=== PATIENT | female | born 1970 | race Caucasian/White ===

== ENCOUNTER 2018-03-15 15:31 | Inpatient (IN) | payer OTHER ==
[~2018-03-15] VITALS: Ht 160 cm; Wt 49.9 kg
[2018-03-15 15:35] VITALS: Ht 160 cm; Wt 49.9 kg
[2018-03-15 16:44] LABS: BASOPHIL % 0.3 % (0-2); PLATELET COUNT 78 x10^3mcL (130-400)
[2018-03-15 17:29] LABS: CALCIUM 9.4 mg/dL (8.5-10.1); CARBON DIOXIDE 26.9 mmol/L (21-32); CHLORIDE SERUM 102 mmol/L (98-107); CREATININE SERUM 0.8 mg/dL (0.6-1.0); GFR1 > 60 mL/min; GLUCOSE SERUM 95 mg/dL (74-106); POTASSIUM SERUM 3.2 mmol/L (3.5-5.1); SODIUM SERUM 145 mmol/L (136-145)
[2018-03-15 17:55] LABS: ALKALINE PHOSPHATASE 193 U/L (46-116); ALT/SGPT 172 U/L (14-59); AST/SGOT 285 U/L (15-37); BILIRUBIN TOTAL 4.81 mg/dL (0.20-1.00); CHOLESTEROL 162 mg/dL (<200); HDL CHOLESTEROL 54 mg/dL (40-60); MAGNESIUM 1.3 mg/dL (1.8-2.4); PHOSPHOROUS 1.7 mg/dL (2.5-4.9); TOTAL PROTEIN, SERUM 6.5 g/dL (6.4-8.2)
[2018-03-15 17:56] LABS: ALBUMIN 3.2 g/dL (3.4-5.0)
[2018-03-15 20:35] LABS: CHOLESTEROL/HDL RATIO 3.2
[2018-03-15 20:44] LABS: T3 TOTAL 0.79 ng/mL
[2018-03-15 21:05] LABS: FREE T4 1.41 ng/dL (0.76-1.46); FREE THYROXINE INDEX 2.9 ug/dL (1.4-4.5); T4(THYROXINE) 8.1 ug/dL (4.7-13.3)
[2018-03-15 21:46] VITALS: BP 103/69
[2018-03-16 04:42] LABS: BASOPHIL % 0.3 % (0-2)
[2018-03-16 04:46] LABS: RED CELL DISTRIBUTION WIDTH 14.1 % (11.5-14.5)
[2018-03-16 04:47] LABS: PLATELET COUNT 70 x10^3mcL (130-400)
[2018-03-16 04:54] LABS: CALCIUM 7.5 mg/dL (8.5-10.1); CARBON DIOXIDE 27.1 mmol/L (21-32); CHLORIDE SERUM 107 mmol/L (98-107); CREATININE SERUM 0.6 mg/dL (0.6-1.0); GFR1 > 60 mL/min; GLUCOSE SERUM 64 mg/dL (74-106); MAGNESIUM 1.5 mg/dL (1.8-2.4); PHOSPHOROUS 2.8 mg/dL (2.5-4.9); SODIUM SERUM 142 mmol/L (136-145)
[2018-03-16 04:57] LABS: POTASSIUM SERUM 2.9 mmol/L (3.5-5.1)
[2018-03-16 05:23] VITALS: BP 102/65
[2018-03-16 07:16] LABS: UA SPECIFIC GRAVITY >=1.030 (1.005-1.035); microscopic required? YES; urine erythrocyte NEGATIVE (NEGATIVE)
[2018-03-16 07:54] LABS: AMPHETAMINE QUAL UR NONE DETECTED (See below)
[2018-03-16 12:37] VITALS: BP 94/66
[2018-03-16 16:45] VITALS: BP 96/65
[2018-03-16 21:07] VITALS: BP 95/62
[2018-03-17 05:27] VITALS: BP 106/72
[2018-03-17 08:15] LABS: BASOPHIL % 0.3 % (0-2); RED CELL DISTRIBUTION WIDTH 14.3 % (11.5-14.5)
[2018-03-17 08:19] LABS: PLATELET COUNT 50 x10^3mcL (130-400)
[2018-03-17 08:22] LABS: CARBON DIOXIDE 25.3 mmol/L (21-32); CHLORIDE SERUM 109 mmol/L (98-107); CREATININE SERUM 0.6 mg/dL (0.6-1.0); GFR1 > 60 mL/min; GLUCOSE SERUM 78 mg/dL (74-106); POTASSIUM SERUM 3.9 mmol/L (3.5-5.1); SODIUM SERUM 140 mmol/L (136-145)
[2018-03-17 08:32] LABS: ALBUMIN 2.1 g/dL (3.4-5.0); BILIRUBIN DIRECT 1.32 mg/dL (0.0-0.2); BILIRUBIN TOTAL 1.98 mg/dL (0.20-1.00); TOTAL PROTEIN, SERUM 4.4 g/dL (6.4-8.2)
[2018-03-17 08:33] VITALS: BP 133/86
[2018-03-17 12:00] VITALS: BP 102/70
[2018-03-17 12:02] VITALS: BP 102/70
[2018-03-17 16:27] VITALS: BP 94/62
[2018-03-17 21:47] VITALS: BP 96/63
[2018-03-18 04:58] VITALS: BP 111/75
[2018-03-18 07:49] LABS: ALKALINE PHOSPHATASE 142 U/L (46-116); ALT/SGPT 96 U/L (14-59); AST/SGOT 126 U/L (15-37); BILIRUBIN TOTAL 1.47 mg/dL (0.20-1.00); CALCIUM 7.8 mg/dL (8.5-10.1); CARBON DIOXIDE 25.8 mmol/L (21-32); CHLORIDE SERUM 108 mmol/L (98-107); CREATININE SERUM 0.5 mg/dL (0.6-1.0); GFR1 > 60 mL/min; GLUCOSE SERUM 84 mg/dL (74-106); MAGNESIUM 1.4 mg/dL (1.8-2.4); PHOSPHOROUS 2.5 mg/dL (2.5-4.9); POTASSIUM SERUM 4.1 mmol/L (3.5-5.1); SODIUM SERUM 141 mmol/L (136-145)
[2018-03-18 07:50] LABS: ALBUMIN 2.1 g/dL (3.4-5.0); TOTAL PROTEIN, SERUM 4.7 g/dL (6.4-8.2)
[2018-03-18 07:58] LABS: PLATELET COUNT 57 x10^3mcL (130-400); RED CELL DISTRIBUTION WIDTH 15.6 % (11.5-14.5)
[2018-03-18 08:04] VITALS: BP 116/81
[2018-03-18 09:41] LABS: ATYPICAL LYMPH 4 %; BAND NEUTROPHIL 0 % (0-10); BASOPHIL 0 % (0-2); MONOCYTE 14 % (0-7); SEGMENTED NEUTROPHILS 33 % (37-75)
[2018-03-18 09:42] LABS: PLATELET MORPHOLOGY PLATELETS DECREASED; rbc morphology (normal/abnorm) ABNORMAL (NORMAL)
[2018-03-18 12:02] VITALS: BP 123/64
[2018-03-18 16:37] VITALS: BP 99/67
[2018-03-18 21:20] VITALS: BP 105/72
[2018-03-19 05:07] VITALS: BP 120/71
[2018-03-19 07:17] LABS: ALKALINE PHOSPHATASE 149 U/L (46-116); ALT/SGPT 87 U/L (14-59); AST/SGOT 106 U/L (15-37); BILIRUBIN TOTAL 1.2 mg/dL (0.20-1.00); CALCIUM 7.9 mg/dL (8.5-10.1); CARBON DIOXIDE 24.6 mmol/L (21-32); CHLORIDE SERUM 109 mmol/L (98-107); CREATININE SERUM 0.5 mg/dL (0.6-1.0); GFR1 > 60 mL/min; GLUCOSE SERUM 77 mg/dL (74-106); PHOSPHOROUS 3.3 mg/dL (2.5-4.9); POTASSIUM SERUM 4.4 mmol/L (3.5-5.1); SODIUM SERUM 138 mmol/L (136-145)
[2018-03-19 07:18] LABS: ALBUMIN 2.2 g/dL (3.4-5.0)
[2018-03-19 08:42] LABS: BASOPHIL % 0.3 % (0-2)
[2018-03-19 08:48] LABS: PLATELET COUNT 103 x10^3mcL (130-400); RED CELL DISTRIBUTION WIDTH 15.6 % (11.5-14.5)
[2018-03-19 09:00] VITALS: BP 116/75
[2018-03-19 10:00] VITALS: BP 103/75
[2018-03-19 17:00] VITALS: BP 120/76
[2018-03-19 21:20] VITALS: BP 113/78
[2018-03-20 05:41] VITALS: BP 142/79
[2018-03-20 06:13] LABS: BASOPHIL % 0.3 % (0-2)
[2018-03-20 06:42] LABS: ALKALINE PHOSPHATASE 162 U/L (46-116); ALT/SGPT 71 U/L (14-59); AST/SGOT 71 U/L (15-37); BILIRUBIN TOTAL 0.9 mg/dL (0.20-1.00); CALCIUM 8.6 mg/dL (8.5-10.1); CARBON DIOXIDE 28.2 mmol/L (21-32); CHLORIDE SERUM 107 mmol/L (98-107); CREATININE SERUM 0.5 mg/dL (0.6-1.0); GFR1 > 60 mL/min; GLUCOSE SERUM 83 mg/dL (74-106); MAGNESIUM 1.6 mg/dL (1.8-2.4); PHOSPHOROUS 5.3 mg/dL (2.5-4.9); POTASSIUM SERUM 4.1 mmol/L (3.5-5.1); SODIUM SERUM 140 mmol/L (136-145)
[2018-03-20 06:46] LABS: PLATELET COUNT 102 x10^3mcL (130-400); RED CELL DISTRIBUTION WIDTH 16.6 % (11.5-14.5)
[2018-03-20 07:07] LABS: ALBUMIN 2.3 g/dL (3.4-5.0); TOTAL PROTEIN, SERUM 5.3 g/dL (6.4-8.2)
[2018-03-20 08:09] LABS: rbc morphology (normal/abnorm) ABNORMAL (NORMAL)
[2018-03-20 13:32] VITALS: BP 126/94
[2018-03-20 17:00] VITALS: BP 106/69
[2018-03-20 20:59] VITALS: BP 126/70
[2018-03-21 06:23] VITALS: BP 126/80
[2018-03-21 08:04] VITALS: BP 123/79
[2018-03-21 12:02] VITALS: BP 106/67
[2018-03-21] MEDS ORDERED: ECO81 PO (13:08)
[2018-03-21] MEDS ORDERED: AMLODIPINE BES2.5 M1 PO (13:09)
[2018-03-21] MEDS ORDERED: PRI20 PO (13:09)
== END 2018-03-21 14:40 | disposition home or self-care (01) | DRG 280 ==
LOC: ED 15:31 → DU 19:51
PROVIDERS: Emergency Medicine; Family Medicine; Internal Medicine; Internal Medicine Gastroenterology
PROC: 0DB68ZX Excision of Stomach, Via Natural or Artificial Opening Endoscopic, Diagnostic (ICD-10-PCS; principal; 2018-03-17 10:00)
DX: I21.A1 Myocardial infarction type 2 (principal); N17.0 Acute kidney failure with tubular necrosis; E43 Unspecified severe protein-calorie malnutrition; E51.2 Wernicke's encephalopathy; F10.239 Alcohol dependence with withdrawal, unspecified; N39.0 Urinary tract infection, site not specified; M62.82 Rhabdomyolysis; D61.818 Other pancytopenia; Z68.1 Body mass index [BMI] 19.9 or less, adult; K20.8 Other esophagitis; K29.70 Gastritis, unspecified, without bleeding; K29.80 Duodenitis without bleeding; E87.6 Hypokalemia; E83.42 Hypomagnesemia; D69.6 Thrombocytopenia, unspecified; F17.290 Nicotine dependence, other tobacco product, uncomplicated; Y90.0 Blood alcohol level of less than 20 mg/100 ml
CPT/HCPCS: 43235; 82962; 83880; 84425; 84439; 87046; 87046-59; 97110-GP; 97116-GP; A9500; G0480; J0696; J1200; J1610; J1650; J2250; J2270; J2310; J2405; J2785; J3010; J3411; J3475; J3480; J3490; J7030; J7040; J7042; J7050; Q0092

== ENCOUNTER 2018-03-27 13:23 | Inpatient (IN) | payer OTHER ==
[~2018-03-27] VITALS: Ht 160 cm; Wt 68.0 kg
[~2018-03-27 13:23] MED LIST: AMLODIPINE BES2.5 M1 PO; ECO81 PO; PRI20 PO
[2018-03-27 15:13] LABS: BASOPHIL % 0.6 % (0-2)
[2018-03-27 15:14] LABS: PLATELET COUNT 432 x10^3mcL (130-400); RED CELL DISTRIBUTION WIDTH 17.2 % (11.5-14.5)
[2018-03-27 15:24] LABS: CALCIUM 7.8 mg/dL (8.5-10.1); CARBON DIOXIDE 26.5 mmol/L (21-32); CHLORIDE SERUM 109 mmol/L (98-107); CREATININE SERUM 0.5 mg/dL (0.6-1.0); GFR1 > 60 mL/min; GLUCOSE SERUM 77 mg/dL (74-106); POTASSIUM SERUM 3.9 mmol/L (3.5-5.1); SODIUM SERUM 143 mmol/L (136-145)
[2018-03-27 15:29] LABS: ALKALINE PHOSPHATASE 121 U/L (46-116); ALT/SGPT 97 U/L (14-59); AST/SGOT 205 U/L (15-37); BILIRUBIN TOTAL 0.7 mg/dL (0.20-1.00); TOTAL PROTEIN, SERUM 6.5 g/dL (6.4-8.2)
[2018-03-27 15:36] LABS: ALBUMIN 2.9 g/dL (3.4-5.0)
[2018-03-27 17:13] LABS: T3 TOTAL 1.35 ng/mL
[2018-03-27 17:14] LABS: MAGNESIUM 1.7 mg/dL (1.8-2.4); PHOSPHOROUS 3.8 mg/dL (2.5-4.9)
[2018-03-27 17:15] LABS: CHOLESTEROL/HDL RATIO 3.7
[2018-03-27 17:50] LABS: FREE T4 0.65 ng/dL (0.76-1.46); FREE THYROXINE INDEX 1.5 ug/dL (1.4-4.5); T4(THYROXINE) 4.9 ug/dL (4.7-13.3)
[2018-03-27 17:56] LABS: microscopic required? NO
[2018-03-27 18:17] LABS: urine erythrocyte NEGATIVE (NEGATIVE)
[2018-03-27 18:31] LABS: AMPHETAMINE QUAL UR NONE DETECTED (See below)
[2018-03-27 18:51] VITALS: BP 100/67
[2018-03-27 18:56] VITALS: Ht 160 cm; Wt 68.0 kg
[2018-03-27 20:17] VITALS: BP 94/53
[2018-03-28 04:19] VITALS: BP 98/53
[2018-03-28 07:32] LABS: BASOPHIL % 0.5 % (0-2); PLATELET COUNT 371 x10^3mcL (130-400)
[2018-03-28 08:24] VITALS: BP 101/69
[2018-03-28 09:57] LABS: CALCIUM 7.8 mg/dL (8.5-10.1); CARBON DIOXIDE 21.2 mmol/L (21-32); CHLORIDE SERUM 108 mmol/L (98-107); CREATININE SERUM 0.5 mg/dL (0.6-1.0); GFR1 > 60 mL/min; GLUCOSE SERUM 91 mg/dL (74-106); MAGNESIUM 1.9 mg/dL (1.8-2.4); POTASSIUM SERUM 3.6 mmol/L (3.5-5.1); SODIUM SERUM 142 mmol/L (136-145)
[2018-03-28 12:58] VITALS: BP 112/68
[2018-03-28 13:35] VITALS: BP 112/68
== END 2018-03-28 15:30 | disposition home or self-care (01) | DRG 896 ==
LOC: ED 13:23 → DU 16:15
PROVIDERS: Emergency Medicine; Family Medicine
DX: F10.129 Alcohol abuse with intoxication, unspecified (principal); G92 Toxic encephalopathy; E44.0 Moderate protein-calorie malnutrition; Y90.8 Blood alcohol level of 240 mg/100 ml or more; R74.0 Nonspecific elevation of levels of transaminase and lactic acid dehydrogenase [LDH]; E78.5 Hyperlipidemia, unspecified; E83.42 Hypomagnesemia; K70.9 Alcoholic liver disease, unspecified; Z68.24 Body mass index [BMI] 24.0-24.9, adult
CPT/HCPCS: 83880; 84439; G0480; J2060; J3490; J7030; Q0092

== ENCOUNTER 2018-04-06 21:45 | Emergency (ER) | payer OTHER ==
[~2018-04-06] VITALS: Ht 160 cm; Wt 53.1 kg
[2018-04-06 22:03] VITALS: Ht 160 cm; Wt 53.1 kg
[2018-04-06 23:55] LABS: microscopic required? NO
[2018-04-07 00:08] LABS: urine erythrocyte NEGATIVE (NEGATIVE)
[2018-04-07 00:12] LABS: CALCIUM 9.1 mg/dL (8.5-10.1); CARBON DIOXIDE 26.1 mmol/L (21-32); CHLORIDE SERUM 101 mmol/L (98-107); CREATININE SERUM 0.6 mg/dL (0.6-1.0); GFR1 > 60 mL/min; GLUCOSE SERUM 87 mg/dL (74-106); POTASSIUM SERUM 3.6 mmol/L (3.5-5.1); SODIUM SERUM 135 mmol/L (136-145)
[2018-04-07 00:17] LABS: ALKALINE PHOSPHATASE 107 U/L (46-116); ALT/SGPT 43 U/L (14-59); AST/SGOT 55 U/L (15-37); BILIRUBIN TOTAL 1.2 mg/dL (0.20-1.00); LIPASE 431 IU/L (73-393); TOTAL PROTEIN, SERUM 6.8 g/dL (6.4-8.2)
[2018-04-07 00:18] LABS: BASOPHIL % 0.2 % (0-2); PLATELET COUNT 132 x10^3mcL (130-400)
[2018-04-07 00:19] LABS: RED CELL DISTRIBUTION WIDTH 15.3 % (11.5-14.5)
[2018-04-07 00:24] LABS: ALBUMIN 3.2 g/dL (3.4-5.0)
[2018-04-07 03:14] LABS: HCG SERUM QUALITATIVE NEGATIVE; HCG SERUM QUANTITATIVE 0 mIU/mL
[2018-04-07 05:06] VITALS: BP 134/58
== END 2018-04-07 05:28 | disposition home or self-care (01) ==
LOC: ED 21:45
PROVIDERS: Emergency Medicine
DX: R10.31 Right lower quadrant pain (principal); R19.7 Diarrhea, unspecified; R11.0 Nausea
CPT/HCPCS: J1885; J7030

== ENCOUNTER 2019-02-24 21:05 | Emergency (ER) | payer OTHER ==
[~2019-02-24] VITALS: Ht 160 cm; Wt 56.7 kg
[2019-02-24 21:21] VITALS: Ht 160 cm; Wt 56.7 kg
[2019-02-24 22:13] LABS: BASOPHIL % 0.4 % (0-2)
[2019-02-24 22:17] LABS: PLATELET COUNT 102 x10^3mcL (130-400); RED CELL DISTRIBUTION WIDTH 15.6 % (11.5-14.5)
[2019-02-24 22:22] LABS: CALCIUM 8.2 mg/dL (8.5-10.1); CARBON DIOXIDE 23.8 mmol/L (21-32); CHLORIDE SERUM 94 mmol/L (98-107); CREATININE SERUM 0.7 mg/dL (0.6-1.0); GFR1 > 60 mL/min; GLUCOSE SERUM 129 mg/dL (74-106); POTASSIUM SERUM 3.9 mmol/L (3.5-5.1); SODIUM SERUM 136 mmol/L (136-145)
[2019-02-24 22:28] LABS: ALKALINE PHOSPHATASE 82 U/L (46-116); ALT/SGPT 202 U/L (14-59); AST/SGOT 246 U/L (15-37); BILIRUBIN TOTAL 0.8 mg/dL (0.20-1.00); TOTAL PROTEIN, SERUM 7.4 g/dL (6.4-8.2)
[2019-02-25 01:31] LABS: microscopic required? NO
[2019-02-25 02:04] LABS: UA SPECIFIC GRAVITY <=1.005 (1.005-1.035); urine erythrocyte NEGATIVE (NEGATIVE)
[2019-02-25 02:23] LABS: AMPHETAMINE QUAL UR NONE DETECTED (See below)
[2019-02-25 14:11] VITALS: BP 115/68
== END 2019-02-25 14:11 | disposition home or self-care (01) ==
LOC: ED 21:05
PROVIDERS: Emergency Medicine
DX: F10.20 Alcohol dependence, uncomplicated (principal); F32.9 Major depressive disorder, single episode, unspecified; I10 Essential (primary) hypertension; Z90.710 Acquired absence of both cervix and uterus; Y90.8 Blood alcohol level of 240 mg/100 ml or more
CPT/HCPCS: G0480; J2060; J2405; J7030

== ENCOUNTER 2019-03-09 21:28 | Emergency (ER) | payer OTHER ==
[~2019-03-09] VITALS: Ht 160 cm; Wt 54.4 kg
[2019-03-09 21:39] VITALS: Ht 160 cm; Wt 54.4 kg
[2019-03-09 22:18] LABS: BASOPHIL % 0.4 % (0-2); PLATELET COUNT 280 x10^3mcL (130-400)
[2019-03-09 22:25] LABS: CALCIUM 7.9 mg/dL (8.5-10.1); CARBON DIOXIDE 23.9 mmol/L (21-32); CHLORIDE SERUM 101 mmol/L (98-107); CREATININE SERUM 0.6 mg/dL (0.6-1.0); GFR1 > 60 mL/min; GLUCOSE SERUM 98 mg/dL (74-106); POTASSIUM SERUM 3.8 mmol/L (3.5-5.1); RED CELL DISTRIBUTION WIDTH 17.7 % (11.5-14.5); SODIUM SERUM 141 mmol/L (136-145)
[2019-03-09 22:32] LABS: ALKALINE PHOSPHATASE 106 U/L (46-116); ALT/SGPT 331 U/L (14-59); AST/SGOT 237 U/L (15-37); BILIRUBIN TOTAL 0.3 mg/dL (0.20-1.00); TOTAL PROTEIN, SERUM 7.8 g/dL (6.4-8.2)
[2019-03-09 22:43] LABS: CHOLESTEROL 258 mg/dL (<200)
[2019-03-10 04:59] VITALS: BP 93/55
== END 2019-03-10 07:19 | disposition home or self-care (01) ==
LOC: ED 21:28
PROVIDERS: Emergency Medicine
DX: F10.129 Alcohol abuse with intoxication, unspecified (principal); I10 Essential (primary) hypertension; Z90.710 Acquired absence of both cervix and uterus; Z98.890 Other specified postprocedural states; Y90.8 Blood alcohol level of 240 mg/100 ml or more
CPT/HCPCS: G0480; J3411; J3490; J7030; Q0092